=== PATIENT | female | born 1940 | race Caucasian/White ===

== ENCOUNTER 2024-07-25 10:30 | Inpatient (IN) | payer OTHER ==
[2024-07-25] MEDS ORDERED: FUROSEMIDE 40 MG/4 ML INJECTABLE VIAL ONE (12:20)
[2024-07-25 12:26] LABS: BASO % 0.3 % (0-2.0); EOS % 0.8 % (0-4.5); HEMATOCRIT 32.5 % (32.4-45.2); HEMOGLOBIN 10.7 GM/dL (10.7-15.3); LYMPH % 15.2 % (8-40); MCH 29.1 pg (25.7-33.7); MCHC 32.9 g/dl (32.0-36.0); MEAN CELL VOLUME 88.5 fl (80-96); MEAN PLT VOLUME 7.9 fl (7.5-11.1); NEUT % 75.7 % (42.8-82.8); PLATELET COUNT 385 10^3/uL (134-434); RBC 3.67 M/mm3 (3.60-5.2); RDW 14.8 % (11.6-15.6); WHITE BLOOD COUNT 12.4 K/mm3 (4.0-10.0)
[2024-07-25] MEDS: FUROSEMIDE 40 MG/4 ML INJECTABLE VIAL IVPUSH ONE (12:30)
[2024-07-25 12:45] LABS: POTASSIUM 3.7 mmol/L (3.5-5.1)
[2024-07-25 12:46] LABS: CALCIUM 9.7 mg/dL (8.5-10.1)
[2024-07-25 12:47] LABS: ALBUMIN 3.2 g/dl (3.4-5.0); BLOOD UREA NITROGEN 74.8 mg/dL (7-18); MAGNESIUM 2.5 mg/dL (1.8-2.4)
[2024-07-25 12:52] LABS: BILIRUBIN,TOTAL 0.6 mg/dL (0.2-1)
[2024-07-25] MEDS ORDERED: PANTOPRAZOLE 40 MG TABLET PO ONE (15:37)
[2024-07-25] MEDS: PANTOPRAZOLE 40 MG TABLET PO SCH (15:45)
[2024-07-25] MEDS: ATORVASTATIN CA 80 MG TABLET (FP) PO SCH (21:47)
[2024-07-25] MEDS: CARVEDILOL 25 MG TABLET (FP) PO SCH (21:47)
[2024-07-25] MEDS: HEPARIN NA (PORCINE) 5,000 UNITS/ML 1ML VIAL SQ SCH (21:47)
[2024-07-26] MEDS: LEVOTHYROXINE NA 50 MCG TABLET (FP) PO SCH (06:38)
[2024-07-26 07:31] LABS: HEMATOCRIT 30.9 % (32.4-45.2); HEMOGLOBIN 10.1 GM/dL (10.7-15.3); MCH 29.4 pg (25.7-33.7); MCHC 32.7 g/dl (32.0-36.0); MEAN CELL VOLUME 89.9 fl (80-96); MEAN PLT VOLUME 8.3 fl (7.5-11.1); PLATELET COUNT 388 10^3/uL (134-434); RBC 3.43 M/mm3 (3.60-5.2); RDW 14.9 % (11.6-15.6); WHITE BLOOD COUNT 9.1 K/mm3 (4.0-10.0)
[2024-07-26 07:45] LABS: POTASSIUM 3.5 mmol/L (3.5-5.1)
[2024-07-26 07:57] LABS: BLOOD UREA NITROGEN 65.5 mg/dL (7-18); CALCIUM 9.4 mg/dL (8.5-10.1)
[2024-07-26 07:58] LABS: MAGNESIUM 2.3 mg/dL (1.8-2.4)
[2024-07-26 08:00] LABS: PHOSPHOROUS 4.2 mg/dL (2.5-4.9)
[2024-07-26 08:01] LABS: BILIRUBIN,TOTAL 1.2 mg/dL (0.2-1); CREATININE 1.7 mg/dL (0.55-1.3)
[2024-07-26 08:02] LABS: TOT PROT 6.3 g/dl (6.4-8.2)
[2024-07-26] MEDS: CLOPIDOGREL BISULFATE 75 MG TABLET (FP) PO SCH (09:17)
[2024-07-26] MEDS: PARoxetine HCL 20 MG TABLET PO SCH (09:18)
[2024-07-26] MEDS: FUROSEMIDE 100 MG/10 ML INJECTABLE VIAL IVPB SCH (09:19)
[2024-07-26] MEDS: POLYETHYLENE GLYCOL (HEALTHYLAX) 3350 17 GM PACKET PO SCH (12:15)
[2024-07-26] MEDS: SENNOSIDES 8.8 MG/5 ML SYRUP PO SCH (21:10)
[2024-07-26] MEDS: APIXABAN 2.5 MG TABLET PO SCH (21:10)
[2024-07-27 07:55] LABS: HEMATOCRIT 29.6 % (32.4-45.2); HEMOGLOBIN 9.7 GM/dL (10.7-15.3); MCH 29.2 pg (25.7-33.7); MCHC 32.6 g/dl (32.0-36.0); MEAN CELL VOLUME 89.6 fl (80-96); MEAN PLT VOLUME 8.1 fl (7.5-11.1); PLATELET COUNT 377 10^3/uL (134-434); RBC 3.31 M/mm3 (3.60-5.2); RDW 14.6 % (11.6-15.6); WHITE BLOOD COUNT 9.8 K/mm3 (4.0-10.0)
[2024-07-27 08:12] LABS: POTASSIUM 3.8 mmol/L (3.5-5.1)
[2024-07-27 08:19] LABS: BLOOD UREA NITROGEN 65.4 mg/dL (7-18)
[2024-07-27 08:22] LABS: ALBUMIN 2.7 g/dl (3.4-5.0); BILIRUBIN,TOTAL 0.6 mg/dL (0.2-1); MAGNESIUM 2.3 mg/dL (1.8-2.4); TOT PROT 6.4 g/dl (6.4-8.2)
[2024-07-27 08:23] LABS: CREATININE 1.8 mg/dL (0.55-1.3)
[2024-07-27 08:24] LABS: PHOSPHOROUS 3.7 mg/dL (2.5-4.9)
[2024-07-28 07:35] LABS: HEMOGLOBIN 9.3 GM/dL (10.7-15.3); MCH 29.6 pg (25.7-33.7); MCHC 33.2 g/dl (32.0-36.0); MEAN CELL VOLUME 89.4 fl (80-96); PLATELET COUNT 378 10^3/uL (134-434); RBC 3.13 M/mm3 (3.60-5.2); RDW 14.7 % (11.6-15.6); WHITE BLOOD COUNT 9.1 K/mm3 (4.0-10.0)
[2024-07-28 07:44] LABS: POTASSIUM 3.4 mmol/L (3.5-5.1)
[2024-07-28 07:48] LABS: ALBUMIN 2.6 g/dl (3.4-5.0); BLOOD UREA NITROGEN 66.2 mg/dL (7-18); MAGNESIUM 2.1 mg/dL (1.8-2.4)
[2024-07-28 07:51] LABS: CREATININE 1.7 mg/dL (0.55-1.3); PHOSPHOROUS 3.7 mg/dL (2.5-4.9)
[2024-07-28 07:53] LABS: BILIRUBIN,TOTAL 0.6 mg/dL (0.2-1); TOT PROT 5.9 g/dl (6.4-8.2)
[2024-07-28] MEDS: DOCUSATE SODIUM 100 MG CAPSULE (FP) PO SCH (13:31)
[2024-07-28] MEDS: POTASSIUM CHLORIDE ORAL LIQUID 20 MEQ/15 ML PO ONE (14:51)
[2024-07-28] MEDS: POTASSIUM CHLORIDE TABS 20 MEQ TABLET.ER (FP) PO SCH (17:30)
[2024-07-28] MEDS: FUROSEMIDE 100 MG/10 ML INJECTABLE VIAL IVPB SCH (22:11)
[2024-07-29 09:18] LABS: POTASSIUM 4.4 mmol/L (3.5-5.1)
[2024-07-29 09:23] LABS: CALCIUM 9.3 mg/dL (8.5-10.1)
[2024-07-29 09:24] LABS: BLOOD UREA NITROGEN 63.2 mg/dL (7-18)
[2024-07-29 09:27] LABS: CREATININE 1.7 mg/dL (0.55-1.3)
[2024-07-29 13:14] LABS: HEMOGLOBIN 9.3 GM/dL (10.7-15.3); MCH 29.3 pg (25.7-33.7); MCHC 32.3 g/dl (32.0-36.0); MEAN CELL VOLUME 90.7 fl (80-96); MEAN PLT VOLUME 8.1 fl (7.5-11.1); PLATELET COUNT 395 10^3/uL (134-434); RBC 3.19 M/mm3 (3.60-5.2); RDW 14.8 % (11.6-15.6); WHITE BLOOD COUNT 9.3 K/mm3 (4.0-10.0)
[2024-07-30 07:49] LABS: POTASSIUM 4.6 mmol/L (3.5-5.1)
[2024-07-30 07:53] LABS: BASO % 0.5 % (0-2.0); EOS % 1.7 % (0-4.5); HEMATOCRIT 27.3 % (32.4-45.2); LYMPH % 21.3 % (8-40); MCH 29.4 pg (25.7-33.7); MCHC 33.1 g/dl (32.0-36.0); MEAN CELL VOLUME 88.9 fl (80-96); MEAN PLT VOLUME 7.9 fl (7.5-11.1); MONO % 9.4 % (3.8-10.2); NEUT % 67.1 % (42.8-82.8); PLATELET COUNT 424 10^3/uL (134-434); RBC 3.07 M/mm3 (3.60-5.2); RDW 14.7 % (11.6-15.6); WHITE BLOOD COUNT 9.4 K/mm3 (4.0-10.0)
[2024-07-30 07:58] LABS: CALCIUM 9.6 mg/dL (8.5-10.1)
[2024-07-30 07:59] LABS: ALBUMIN 2.7 g/dl (3.4-5.0); BLOOD UREA NITROGEN 62.2 mg/dL (7-18)
[2024-07-30 08:02] LABS: CREATININE 1.6 mg/dL (0.55-1.3); PHOSPHOROUS 3.9 mg/dL (2.5-4.9)
[2024-07-30 08:03] LABS: BILIRUBIN,TOTAL 0.5 mg/dL (0.2-1); TOT PROT 6.1 g/dl (6.4-8.2)
[2024-07-30] MEDS: FUROSEMIDE 40 MG/4 ML INJECTABLE VIAL IVPUSH ONE (20:06)
[2024-07-31 07:32] LABS: POTASSIUM 3.6 mmol/L (3.5-5.1)
[2024-07-31 07:34] LABS: BASO % 0.4 % (0-2.0); EOS % 1.5 % (0-4.5); HEMATOCRIT 28.8 % (32.4-45.2); HEMOGLOBIN 9.4 GM/dL (10.7-15.3); LYMPH % 25.6 % (8-40); MCH 29.3 pg (25.7-33.7); MCHC 32.6 g/dl (32.0-36.0); MEAN CELL VOLUME 89.7 fl (80-96); MEAN PLT VOLUME 7.7 fl (7.5-11.1); MONO % 9.2 % (3.8-10.2); NEUT % 63.3 % (42.8-82.8); PLATELET COUNT 415 10^3/uL (134-434); RBC 3.21 M/mm3 (3.60-5.2); RDW 14.6 % (11.6-15.6); WHITE BLOOD COUNT 8.5 K/mm3 (4.0-10.0)
[2024-07-31 07:36] LABS: ALBUMIN 2.7 g/dl (3.4-5.0); BLOOD UREA NITROGEN 58.2 mg/dL (7-18); CALCIUM 9.8 mg/dL (8.5-10.1); MAGNESIUM 1.9 mg/dL (1.8-2.4)
[2024-07-31 07:39] LABS: CREATININE 1.5 mg/dL (0.55-1.3)
[2024-07-31 07:41] LABS: BILIRUBIN,TOTAL 0.5 mg/dL (0.2-1); TOT PROT 6.1 g/dl (6.4-8.2)
[2024-07-31] MEDS: PEG 3350/NA SULF BICARB CL/KCL 4000 ML SOLN.RECON PO ONE (16:31)
[2024-07-31] MEDS: BISACODYL 5 MG TABLET.DR (FP) PO ONE (21:34)
[2024-08-01 07:27] LABS: BASO % 0.4 % (0-2.0); EOS % 1.6 % (0-4.5); HEMATOCRIT 28.8 % (32.4-45.2); HEMOGLOBIN 9.5 GM/dL (10.7-15.3); LYMPH % 25.2 % (8-40); MCH 29.6 pg (25.7-33.7); MCHC 33.1 g/dl (32.0-36.0); MEAN CELL VOLUME 89.6 fl (80-96); MEAN PLT VOLUME 7.7 fl (7.5-11.1); MONO % 9.1 % (3.8-10.2); NEUT % 63.7 % (42.8-82.8); PLATELET COUNT 468 10^3/uL (134-434); RBC 3.22 M/mm3 (3.60-5.2); RDW 14.8 % (11.6-15.6); WHITE BLOOD COUNT 9.3 K/mm3 (4.0-10.0)
[2024-08-01 07:41] LABS: POTASSIUM 3.3 mmol/L (3.5-5.1)
[2024-08-01 07:46] LABS: INR 1.56 (0.83-1.09); PROTHROMBIN TIME (PATIENT) 17.2 SEC (9.7-13.0)
[2024-08-01 07:50] LABS: ALBUMIN 2.8 g/dl (3.4-5.0); CALCIUM 9.7 mg/dL (8.5-10.1); MAGNESIUM 1.9 mg/dL (1.8-2.4)
[2024-08-01 07:53] LABS: BILIRUBIN,TOTAL 0.5 mg/dL (0.2-1); CREATININE 1.6 mg/dL (0.55-1.3)
[2024-08-01 07:54] LABS: TOT PROT 6.6 g/dl (6.4-8.2)
[2024-08-01] MEDS: POTASSIUM CHLORIDE TABS 20 MEQ TABLET.ER (FP) PO ONE (12:59)
[2024-08-01] MEDS ORDERED: MIDAZOLAM HCL 2 MG/2 ML SINGLE DOSE VIAL ONE (14:24)
[2024-08-01] MEDS ORDERED: ETOMIDATE 20 MG/10 ML VIAL IVPUSH ONE (14:24)
[2024-08-01] MEDS ORDERED: ESMOLOL HCL 100,000 MCG/10 ML VIAL ONE (14:24)
[2024-08-02 07:42] LABS: BASO % 0.3 % (0-2.0); EOS % 1.1 % (0-4.5); HEMATOCRIT 27.9 % (32.4-45.2); HEMOGLOBIN 9.1 GM/dL (10.7-15.3); LYMPH % 22.1 % (8-40); MCH 29.2 pg (25.7-33.7); MCHC 32.6 g/dl (32.0-36.0); MEAN CELL VOLUME 89.6 fl (80-96); MEAN PLT VOLUME 7.8 fl (7.5-11.1); NEUT % 68.5 % (42.8-82.8); PLATELET COUNT 472 10^3/uL (134-434); RBC 3.11 M/mm3 (3.60-5.2); RDW 14.7 % (11.6-15.6); WHITE BLOOD COUNT 9.5 K/mm3 (4.0-10.0)
[2024-08-02 07:53] LABS: POTASSIUM 3.7 mmol/L (3.5-5.1)
[2024-08-02 08:00] LABS: MAGNESIUM 1.8 mg/dL (1.8-2.4)
[2024-08-02 08:01] LABS: BLOOD UREA NITROGEN 56.3 mg/dL (7-18); CALCIUM 9.8 mg/dL (8.5-10.1)
[2024-08-02 08:04] LABS: PHOSPHOROUS 3.6 mg/dL (2.5-4.9)
[2024-08-02 08:05] LABS: CREATININE 1.5 mg/dL (0.55-1.3)
[2024-08-02 08:49] VITALS: BMI 28.5
[2024-08-02 19:12] VITALS: TEMP 98.6
[2024-08-02 19:38] VITALS: BP 130/70; PULSE 80; RESP 20
== END 2024-08-02 20:14 | disposition short-term general hospital (02) | DRG 291 ==
LOC: JER 10:30 → JERBED 14:13 → J4W 17:34
PROVIDERS: ADMIT Internal Medicine; ATTEND Internal Medicine
PROC: 0DJD8ZZ Inspection of Lower Intestinal Tract, Via Natural or Artificial Opening Endoscopic (ICD-10-PCS; 2024-08-01)
PROC: 0DB58ZX Excision of Esophagus, Via Natural or Artificial Opening Endoscopic, Diagnostic (ICD-10-PCS; principal; 2024-08-01 15:00)
DX: I13.0 Hypertensive heart and chronic kidney disease with heart failure and stage 1 through stage 4 chronic kidney disease, or unspecified chronic kidney disease (principal); I50.33 Acute on chronic diastolic (congestive) heart failure; I48.19 Other persistent atrial fibrillation; E44.0 Moderate protein-calorie malnutrition; E03.9 Hypothyroidism, unspecified; E78.5 Hyperlipidemia, unspecified; I25.10 Atherosclerotic heart disease of native coronary artery without angina pectoris; N18.9 Chronic kidney disease, unspecified; L89.151 Pressure ulcer of sacral region, stage 1; Z95.5 Presence of coronary angioplasty implant and graft; K59.00 Constipation, unspecified; K20.90 Esophagitis, unspecified without bleeding; K57.30 Diverticulosis of large intestine without perforation or abscess without bleeding
CPT/HCPCS: 0241U-QW; 36415; 71045-TC-FY; 80048; 80053; 83735; 83880; 84100; 84439; 84443; 84484; 85025; 85027; 85610; 88305-TC; 93005; 93010; 93306-TC; 97116-GP; 97161-GP; 99285-25; J1644